=== PATIENT | female | born 1995 | race Hispanic/Latino ===

== ENCOUNTER 2024-09-22 17:59 | Emergency (ER) | payer SELFPAY ==
[~2024-09-22] VITALS: Ht 152.4 cm; Wt 72.6 kg
--- NOTE | 2024-09-22 18:15 | ERN ---
ED Note History of Present Illness Stated Complaint: TINGLING FACE, NOT FEELING WELL Chief Complaint: Other Problems Time Seen by MD: 18:05 Dictation: Patient is a 29-year-old female coming in today with complaints of occipital headache and feeling some tingling to her arms onset yesterday. No nausea vomiting no fever no chills NIH is 0. She states he had the same symptoms yesterday and saw a primary care doctor in [place] who told her she had an ear infection and gave her antibiotics. No primary care doctor she denies any history of chronic diseases such as hypertension diabetes cholesterol etc. Allergies: Coded Allergies: No Known Drug Allergies (Unverified Allergy, Unknown, 09/22/24) Past Medical History History: Not Applicable RN Note Reviewed/Agreed w/PFSH: Yes Review of System Dictation CONSTITUTIONAL: Negative except for HPI HEAD/FACE: Negative except for HPI EENT: Negative except for HPI RESPIRATORY: Negative except for HPI GASTROINTESTINAL/ABDOMINAL: Negative except for HPI GENITOURINARY: Negative except for HPI MUSCULOSKELETAL: Negative except for HPI INTEGUMENTARY: Negative except for HPI NEUROLOGICAL/PSYCH: Negative except for HPI numbness tingling occipital head HEMATOLOGIC/LYMPHATIC: Negative except for HPI All Systems Negative, Except as noted above. 13 point review of systems assessed and all negative except for above. Initial Vital Sign VS Vital Signs Date Time Temp Pulse Resp B/P (MAP) Pulse Ox O2 Delivery O2 Flow Rate FiO2 09/22/24 18:14 99.3 96 16 108/66 99 Room Air 09/22/24 20:14 0 21 Physical Exam Dictation Vital Signs reviewed General Appearance: Alert, oriented x 3, no acute distress, well developed, nourished. Head and Face: non-traumatic. Eyes: PERRL, pink conjunctivas, eyelid no trauma, anterior chamber with arcus senilis. Ears: Pinnas intact and no signs of trauma or erythema ear canals clear and no discharge TM no erythema Nose: No discharge, no bleeding. Oropharynx: Mouth normal, tongue pink, pharynx clear,no erythema, tonsils no exudates, no abscesses noted, mucous membrane moist Neck: Supple, non-tender, no thyromegaly, no masses, no JVD, no bruits Breast:Deferred Chest:No tenderness, no crepitus, no paradoxical movement, no retractions Lungs:Clear, well-ventilated, symmetric, no rales, no wheezing, no rhonchi, no stridor, good breath sounds bilaterally Heart: Regular rate, regular rhythm, no murmur, no gallops Vascular: no peripheral edema, Abdomen: Soft, positive bowel sounds, nondistended, no guarding, nontender, no rebound, no masses no hepatomegaly, no splenomegaly, no Rausch's sign, no hernias. Rectal: Deferred Genital: Deferred Neurological: Normal speech, motor function intact, sensory function intact Musculoskeletal: Neck nontender, full range of motion, back nontender, full range of motion, Extremities: nontender, full range of motion Skin: Color pink, dry, no turgor, no rash, no lacerations, no abrasions, no contusions. Lymphatic: Deferred Results (Laboratory/Radiology) Laboratory/Radiology Laboratory Tests Test 09/22/24 18:37 White Blood Count 8.6 K/uL (4.8-10.8) Red Blood Count 4.64 MIL/uL (4.00-5.50) Hemoglobin 14.2 g/dL (12.0-16.0) Hematocrit 42.2 % (36-48) Mean Corpuscular Volume 90.9 fL (79-99) Mean Corpuscular Hemoglobin 30.6 pg (27.0-33.0) Mean Corpuscular Hemoglobin Concent 33.6 g/dL (32.0-36.0) Red Cell Distribution Width 12.2 % (11.0-15.5) Platelet Count 188 K/uL (130-400) Mean Platelet Volume 12.1 fL (7.5-10.5) H Immature Granulocyte % (Auto) 0.2 % (0-1) Neutrophils (%) (Auto) 67.9 % (40.0-77.0) Lymphocytes (%) (Auto) 24.9 % (21.0-51.0) Monocytes (%) (Auto) 5.1 % (3.0-13.0) Eosinophils (%) (Auto) 1.6 % (0.0-8.0) Basophils (%) (Auto) 0.3 % (0.0-5.0) Neutrophils # (Auto) 5.8 K/uL (1.8-7.7) Lymphocytes # (Auto) 2.1 K/uL (1.0-4.8) Monocytes # (Auto) 0.4 K/uL (0.1-1.0) Eosinophils # (Auto) 0.14 K/uL (0.00-0.70) Basophils # (Auto) 0.03 K/uL (0.00-0.20) Absolute Immature Granulocyte (auto 0.02 K/uL (0-1) Nucleated Red Blood Cells 0.0 % (0.0-0.19) Sodium Level 141 mmol/L (136-145) Potassium Level 3.9 mmol/L (3.5-5.1) Chloride Level 105 mmol/L (101-111) Carbon Dioxide Level 31 mmol/L (21-32) Blood Urea Nitrogen 9 mg/dL (7-18) Creatinine 0.7 mg/dL (0.5-1.0) Glomerular Filtration Rate Calc 119 mL/min (>90) Random Glucose 115 mg/dL (70-105) H Total Calcium 9.5 mg/dL (8.5-10.1) Magnesium Level 2.40 mg/dL (1.80-2.40) Labs Reviewed?: Yes ED Course ED Course Orders Procedure Category Date Status Time Cbc With Differential LAB 09/22/24 Complete 18:12 Basic Metabolic Panel LAB 09/22/24 Complete 18:12 Magnesium LAB 09/22/24 Complete 18:12 Vital Signs Date Time Temp Pulse Resp B/P (MAP) Pulse Ox O2 Delivery O2 Flow Rate FiO2 09/22/24 20:14 99.0 90 16 110/70 99 Room Air* 0 21 09/22/24 18:14 99.3 96 16 108/66 99 Room Air 1920/labs are completely unremarkable no electrolyte imbalance no dehydration no anemia magnesium is normal. We will discharged home with diagnosis of paresthesia and follow up with her doctor and was given a list of the doctors on staff here at the hospital Medical Decision Making MDM Medical discharge making was based on labs to include magnesium. All labs are negative Discharged home with diagnosis of paresthesia Told follow up with her primary care doctor and given a list of the primary care doctors on staff DX & DISP Disposition: Discharge Departure Impression: Primary Impression: Paresthesia of both lower extremities Additional Impression: Paresthesia and pain of both upper extremities Condition: Stable Additional Instructions: Follow-up with primary care provider in 1 to 2 days. Take medications as directed here in the emergency room. Okay to continue home medications unless otherwise discussed during your visit in the emergency room today. Return to your nearest emergency room if symptoms worsen or if there is no improvement. Call 911 if you need immediate assistance. Take Tylenol or Motrin [id number] as needed and if no contraindications are present. Increase oral hydration. A wound culture or urine culture was ordered here in the emergency room department please follow-up with primary care provider and advise them to get repeat ports from our facility. If you had any Bj wrap/splints that were applied here, please do not remove them until you see your primary care or specialty. Diet and activity as tolerated. Follow up with one of the doctors on the list provided you in the next 2-3 days for management Time of Disposition: 19:24 I have reviewed the case, and I agree with, Diagnosis and Plan MARIZA ALEMAN NP Sep 22, 2024 18:15 TONIA GARCIA DO Sep 23, 2024 12:15
--- NOTE | 2024-09-22 18:19 | NUR ---
PT SEEN BY MARIZA ANDREW PRIOR TO TRIAGE
[2024-09-22 18:44] LABS: BASOPHILS # (AUTO) 0.03 K/uL (0.00-0.20); BASOPHILS % (AUTO) 0.3 % (0.0-5.0); EOSINOPHILS # (AUTO) 0.14 K/uL (0.00-0.70); EOSINOPHILS % (AUTO) 1.6 % (0.0-8.0); HEMATOCRIT 42.2 % (36-48); IMMATURE GRANULOCYTE ABSOLUTE 0.02 K/uL (0-1); LYMPHOCYTES # (AUTO) 2.1 K/uL (1.0-4.8); LYMPHOCYTES % (AUTO) 24.9 % (21.0-51.0); MEAN CORPUSCULAR HEMOGLOBIN 30.6 pg (27.0-33.0); MEAN CORPUSCULAR HGB CONC 33.6 g/dL (32.0-36.0); MEAN CORPUSCULAR VOLUME 90.9 fL (79-99); MONOCYTES # (AUTO) 0.4 K/uL (0.1-1.0); MONOCYTES % (AUTO) 5.1 % (3.0-13.0); NEUTROPHILS # (AUTO) 5.8 K/uL (1.8-7.7); NEUTROPHILS % (AUTO) 67.9 % (40.0-77.0); PLATELET COUNT (AUTO) 188 K/uL (130-400); RED BLOOD CELL COUNT(AUTO) 4.64 MIL/uL (4.00-5.50); RED CELL DISTRIBUTION WIDTH 12.2 % (11.0-15.5); WHITE BLOOD COUNT (AUTO) 8.6 K/uL (4.8-10.8)
[2024-09-22 19:19] LABS: CREATININE 0.7 mg/dL (0.5-1.0); MAGNESIUM 2.4 mg/dL (1.80-2.40); POTASSIUM 3.9 mmol/L (3.5-5.1)
[2024-09-22 20:14] VITALS: BP 110/70; PULSE 90; RESP 16; TEMP 99; O2SAT 99
== END 2024-09-22 20:25 | disposition home or self-care (01) ==
LOC: EDH 17:59
DX: R20.2 Paresthesia of skin (principal); M79.602 Pain in left arm; M79.601 Pain in right arm
CPT/HCPCS: 36415; 80048; 83735; 85025; 99283